=== PATIENT | female | born 1985 | race Two or more races ===

== ENCOUNTER 2019-03-10 14:39 | Inpatient (IN) | payer OTHER ==
[~2019-03-10] VITALS: Ht 165.1 cm; Wt 5.0 kg
[~2019-03-10 14:39] MED LIST: KEFLEX500 MG PO
[2019-04-07] MEDS ORDERED: PRENATAL TABLE1 EACH PO (22:06)
== END 2019-04-10 13:09 | disposition home or self-care (01) | DRG 798 ==
LOC: OB/GYN 04-07 20:54 → LDR 04-07 20:54 → OB/GYN 04-08 02:24 → LDR 04-19 12:15 → OB/GYN 04-19 12:15
PROVIDERS: ADMIT Obstetrics & Gynecology
PROC: 3E033VJ Introduction of Other Hormone into Peripheral Vein, Percutaneous Approach (ICD-10-PCS; 2019-04-07)
PROC: 4A1HXCZ Monitoring of Products of Conception, Cardiac Rate, External Approach (ICD-10-PCS; 2019-04-07)
PROC: 10E0XZZ Delivery of Products of Conception, External Approach (ICD-10-PCS; principal; 2019-04-08)
PROC: 10907ZC Drainage of Amniotic Fluid, Therapeutic from Products of Conception, Via Natural or Artificial Opening (ICD-10-PCS; 2019-04-08)
PROC: 0UL70ZZ Occlusion of Bilateral Fallopian Tubes, Open Approach (ICD-10-PCS; 2019-04-09)
DX: O80 Encounter for full-term uncomplicated delivery (principal); Z37.0 Single live birth; Z3A.38 38 weeks gestation of pregnancy; Z30.2 Encounter for sterilization; Z22.330 Carrier of Group B streptococcus